=== PATIENT | female | born 1980 | race Caucasian/White ===

== ENCOUNTER 2018-12-27 18:31 | Inpatient (IN) | payer BC | END 2018-12-30 12:35 | disposition home or self-care (01) | LOC: ER 18:31 → ORTHO 4S 21:33 ==

== ENCOUNTER 2019-05-26 12:48 | Emergency (ER) | payer BC ==
[~2019-05-26] VITALS: Ht 157.5 cm; Wt 125.9 kg
[2019-05-26 12:56] VITALS: BP 180/103
[2019-05-26] MEDS ORDERED: METH-360 PO (14:13)
[2019-05-26] MEDS ORDERED: ketorolac tromethamine 15mg/ml inj. IM ONE (14:15)
== END 2019-05-26 14:43 | disposition home or self-care (01) ==
LOC: ER 12:49
DX: G56.02 Carpal tunnel syndrome, left upper limb (principal); I10 Essential (primary) hypertension; E11.9 Type 2 diabetes mellitus without complications; F41.9 Anxiety disorder, unspecified; Z90.49 Acquired absence of other specified parts of digestive tract; Z98.890 Other specified postprocedural states; Z56.0 Unemployment, unspecified; Z88.0 Allergy status to penicillin; Z91.018 Allergy to other foods; Z79.899 Other long term (current) drug therapy
CPT/HCPCS: 29125; 96372; 99283; J1885

== ENCOUNTER 2020-06-30 07:30 | Day surgery (SDC) | payer MEDICAID ==
[2020-06-22 12:07] LABS: BASOPHILS # (AUTO) 0.1 X10'3 (0-0.2); BASOPHILS % (AUTO) 0.8 % (0-1); EOSINOPHILS # (AUTO) 0.2 X10'3 (0-0.9); EOSINOPHILS % (AUTO) 2.1 % (0-6); LYMPHOCYTES # (AUTO) 1.8 X10'3 (1.1-4.8); LYMPHOCYTES % (AUTO) 21.7 % (21-51); MEAN CORPUSCULAR HEMOGLOBIN 26.9 PG (27.0-31.0); MEAN CORPUSCULAR HGB CONC 32.8 g/dL (33.0-36.5); MEAN CORPUSCULAR VOLUME 82.1 FL (78-98); MEAN PLATELET VOLUME 8.9 FL (7.4-10.4); MONOCYTES # (AUTO) 0.6 X10'3 (0-0.9); NEUTROPHILS # (AUTO) 5.7 X10'3 (1.8-7.7); NEUTROPHILS % (AUTO) 68.4 % (42-75); PRE OP HEMOGLOBIN 14.4 g/dL (12.0-16.0); PRE OP PLATELET COUNT 324 X10'3 (140-440); RED BLOOD COUNT 5.36 X10'6 (4.20-5.60); RED CELL DISTRIBUTION WIDTH 14.8 % (11.5-14.5)
[2020-06-22 12:13] LABS: ALBUMIN 3.9 G/DL (3.4-5.0); ALKALINE PHOSPHATASE 82 IU/L (46-116); BLOOD UREA NITROGEN 12 MG/DL (7-18); BUN/CREATININE RATIO 15.8 (6.6-38.0); CALCIUM 9.5 MG/DL (8.5-10.1); CHLORIDE 106 MMOL/L (99-107); CREATININE 0.76 MG/DL (0.40-0.90); PRE OP ALT 25 U/L (30-65); PRE OP ANION GAP 8 (8-16); PRE OP AST 12 U/L (10-37); PRE OP BILIRUB, TOTAL 0.3 MG/DL (0.0-1.0); PRE OP GLUCOSE 159 MG/DL (70-104); PRE OP POTASSIUM 3.9 MMOL/L (3.4-5.1); PRE OP SODIUM 141 MMOL/L (135-145); TOTAL PROTEIN 7.9 G/DL (6.4-8.2); eGFR 85 ML/MIN
[2020-06-22 12:44] LABS: HCG SERUM QL NEGATIVE
[~2020-06-30] VITALS: Ht 157.5 cm; Wt 127.3 kg
[2020-06-30] VITALS (8 sets, daily range): BP systolic 147–170; BP diastolic 83–102
[~2020-06-30 07:30] MED LIST: ALBU8HFA PO; BACDS PO; BIOT1CAP3 PO; BUPIVAcaine/PF 2.5mg/ml (0.25%) 10ml vial ONE; CALC500T63 PO; DULA0.75 SQ; IBUP-1986 PO; INSU100I8 SQ; LANTUS SQ; MULT-1085 PO; ZINC50TA67 PO; albuterol 2.5 MG/3 ML nebule NEB ONE; clindamycin-Cleocin 900mg/D5W 50 ML IV ONE; famotidine 20mg tablet PO ONE; ringers solution, lacted 1,000 ML IV SCH
[2020-06-30] MEDS ORDERED: LIDOcaine 0.5% (5mg/ml) 50ml vial ONE (10:07)
[2020-06-30] MEDS ORDERED: fentaNYL/PF 50MCG/1 ML 2ML syringe ONE ×2 (10:10→10:40)
[2020-06-30] MEDS ORDERED: MIDAZolam 5mg/5ml vial ONE (10:10)
[2020-06-30] MEDS ORDERED: BUPIVAcaine/PF 2.5mg/ml (0.25%) 10ml vial ONE (10:22)
[2020-06-30] MEDS ORDERED: labetalol 20mg/4ml (5mg/ml) syringe IV ONE (10:50)
--- NOTE | 2020-06-30 10:55 | NUR ---
Received from OR via , accompanied by Anesthesiologist DR NORTH and report given by Anesthesiolgist. PT IS AWAKE, ALERT, MOVING EXT X 4, NO C/O PAIN, SKIN WARM AND PINK, RIGHT DRESSING CD, VSS, PIV LEFT AC 20G PATENT.
--- NOTE | 2020-06-30 11:45 | NUR ---
PT MEETS DISCHARGE CRITERIA, NO C/O PAIN, SKIN WARM AND PINK, PIV REMOVED, DISCHARGE INSTRUCTIONS GIVEN TO PT AND SHE VERBALIZES UNDERSTANDING, VSS, BROUGHT TO DAUGHTER'S VEHICLE VIA W/C. ICE PACK SENT WITH PT.
== END 2020-06-30 11:45 | disposition home or self-care (01) ==
LOC: PAS 07:30
PROVIDERS: ATTEND Orthopaedic Surgery Hand Surgery
DX: G56.01 Carpal tunnel syndrome, right upper limb (principal); F17.210 Nicotine dependence, cigarettes, uncomplicated; G47.33 Obstructive sleep apnea (adult) (pediatric); F41.9 Anxiety disorder, unspecified; E11.9 Type 2 diabetes mellitus without complications; E66.9 Obesity, unspecified; Z68.43 Body mass index [BMI] 50.0-59.9, adult; Z20.828 Contact with and (suspected) exposure to other viral communicable diseases; Z90.49 Acquired absence of other specified parts of digestive tract; Z98.890 Other specified postprocedural states; Z87.19 Personal history of other diseases of the digestive system; Z86.14 Personal history of Methicillin resistant Staphylococcus aureus infection; Z88.0 Allergy status to penicillin; Z91.018 Allergy to other foods; Z79.4 Long term (current) use of insulin; Z79.899 Other long term (current) drug therapy; Z72.89 Other problems related to lifestyle
CPT/HCPCS: 29848; 36415; 80053; 82948; 84703; 85025; 87635; J2001; J2250; J3010; J3490; A4215; A6449; A7000; J7120

== ENCOUNTER 2020-07-24 05:35 | Day surgery (SDC) | payer MEDICAID ==
[2020-07-19 12:50] LABS: BASOPHILS % (AUTO) 0.5 % (0-1); EOSINOPHILS # (AUTO) 0.2 X10'3 (0-0.9); EOSINOPHILS % (AUTO) 1.9 % (0-6); LYMPHOCYTES # (AUTO) 1.7 X10'3 (1.1-4.8); LYMPHOCYTES % (AUTO) 20.4 % (21-51); MEAN CORPUSCULAR HGB CONC 33.2 g/dL (33.0-36.5); MEAN CORPUSCULAR VOLUME 81.2 FL (78-98); MEAN PLATELET VOLUME 9.3 FL (7.4-10.4); MONOCYTES # (AUTO) 0.6 X10'3 (0-0.9); MONOCYTES % (AUTO) 6.9 % (2-12); NEUTROPHILS # (AUTO) 5.7 X10'3 (1.8-7.7); NEUTROPHILS % (AUTO) 70.3 % (42-75); PRE OP HEMOGLOBIN 14.6 g/dL (12.0-16.0); PRE OP PLATELET COUNT 284 X10'3 (140-440); RED BLOOD COUNT 5.41 X10'6 (4.20-5.60); RED CELL DISTRIBUTION WIDTH 14.6 % (11.5-14.5)
[2020-07-19 13:13] LABS: ALBUMIN 3.8 G/DL (3.4-5.0); ALKALINE PHOSPHATASE 75 IU/L (46-116); BLOOD UREA NITROGEN 9 MG/DL (7-18); BUN/CREATININE RATIO 14.3 (6.6-38.0); CALCIUM 9.3 MG/DL (8.5-10.1); CHLORIDE 104 MMOL/L (99-107); CREATININE 0.63 MG/DL (0.40-0.90); PRE OP ALT 22 U/L (30-65); PRE OP ANION GAP 9 (8-16); PRE OP AST 12 U/L (10-37); PRE OP BILIRUB, TOTAL 0.3 MG/DL (0.0-1.0); PRE OP POTASSIUM 3.4 MMOL/L (3.4-5.1); PRE OP SODIUM 138 MMOL/L (135-145); TOTAL CARBON DIOXIDE 25.1 MMOL/L (24-32); TOTAL PROTEIN 7.7 G/DL (6.4-8.2); eGFR > 90 ML/MIN
[2020-07-19 13:17] LABS: HCG SERUM QL NEGATIVE
[2020-07-19 13:23] LABS: PRE OP GLUCOSE 207 MG/DL (70-104)
[~2020-07-24] VITALS: Ht 157.5 cm; Wt 126.0 kg
[~2020-07-24 05:35] MED LIST changes: -BIOT1CAP3 PO; -BUPIVAcaine/PF 2.5mg/ml (0.25%) 10ml vial ONE; -CALC500T63 PO; +DIAZ5TAB5 PO; -IBUP-1986 PO; +INSU100I31 SQ; -LANTUS SQ; -MULT-1085 PO; -ZINC50TA67 PO; -albuterol 2.5 MG/3 ML nebule NEB ONE; +ceFAZolin inj. 3,000 MG in normal saline 100ml IV soln 100 ML IV ONE; -clindamycin-Cleocin 900mg/D5W 50 ML IV ONE
[2020-07-24 05:50] VITALS: BP 146/84
[2020-07-24] MEDS ORDERED: LIDOcaine 1% (10mg/ml) 2ml vial ONE (06:15)
[2020-07-24] MEDS ORDERED: BUPIVAcaine/PF 2.5mg/ml (0.25%) 10ml vial ONE (06:40)
[2020-07-24] MEDS ORDERED: LIDOcaine 0.5% (5mg/ml) 50ml vial ONE (07:16)
[2020-07-24] MEDS ORDERED: fentaNYL/PF 50MCG/1 ML 2ML syringe ONE (07:18)
[2020-07-24] MEDS ORDERED: MIDAZolam 5mg/5ml vial ONE (07:18)
[2020-07-24] MEDS ORDERED: labetalol 20mg/4ml (5mg/ml) syringe IV PRN (07:20)
[2020-07-24] MEDS ORDERED: morphine 2 MG/ML inj. syringe IV PRN (07:20)
[2020-07-24] MEDS ORDERED: morphine 4 MG/ML inj SYRINge IV PRN (07:20)
[2020-07-24] MEDS ORDERED: hydrALAZINE 20mg/ml inj. IV PRN (07:20)
[2020-07-24] MEDS ORDERED: meperidine/PF 25mg/ml syringe IV PRN ×3 (07:20)
[2020-07-24] MEDS ORDERED: ringers solution, lacted 1,000 ML IV SCH (07:20)
[2020-07-24] MEDS ORDERED: proCHLORperazine 10 MG/2 ml inj IV PRN (07:20)
[2020-07-24] MEDS ORDERED: ondansetron/PF 4mg/2ml inj IV PRN (07:20)
[2020-07-24] MEDS ORDERED: acetaminophen 1,000mg/100ml IV 100 ML IV PRN (07:20)
[2020-07-24] MEDS ORDERED: propofol inj 20 ML IV ONE (07:44)
[2020-07-24] MEDS ORDERED: labetalol 20mg/4ml (5mg/ml) syringe IV ONE (07:44)
[2020-07-24 07:55] VITALS: BP 142/78
--- NOTE | 2020-07-24 07:55 | NUR ---
Received from OR via BED, accompanied by Anesthesiologist DR AJ and report given by Anesthesiolgist. PATIENT A&OX4, DENIES PAIN, V/S WNL, NEUROVASCULAR CHECKS INTACT, 20G PIV RUE, SCD ON, DRESSING TO LEFT WRIST CDI ELEVATED WITH ICEBAG APPLIED.
[2020-07-24 08:05] VITALS: BP 144/92
[2020-07-24 08:15] VITALS: BP 139/89
[2020-07-24 08:25] VITALS: BP 141/86
--- NOTE | 2020-07-24 08:26 | NUR ---
PATIENT A&OX4, DENIES PAIN, V/S WNL, NEUROVASCULAR CHECKS INTACT, 20G PIV RUE D/C, SCD OFF, DRESSING TO LEFT WRIST CDI ELEVATED WITH ICEBAG APPLIED. I HAVE REVIEWED D/C INSTRUCTIONS WITH PATIENT AND FAMILY AND THEY HAVE VERBALIZED UNDERSTANDING. PATIENT D/C HOME WITH ALL BELONGINGS AND FAMILY GAVE TRANSPORT HOME.
== END 2020-07-24 08:25 | disposition home or self-care (01) ==
LOC: PAS 05:35
PROVIDERS: ATTEND Orthopaedic Surgery Hand Surgery
DX: G56.02 Carpal tunnel syndrome, left upper limb (principal); Z20.828 Contact with and (suspected) exposure to other viral communicable diseases; F17.210 Nicotine dependence, cigarettes, uncomplicated; G47.33 Obstructive sleep apnea (adult) (pediatric); I10 Essential (primary) hypertension; E11.9 Type 2 diabetes mellitus without complications; F41.9 Anxiety disorder, unspecified; E66.9 Obesity, unspecified; Z68.43 Body mass index [BMI] 50.0-59.9, adult; Z86.14 Personal history of Methicillin resistant Staphylococcus aureus infection; Z87.19 Personal history of other diseases of the digestive system; Z79.899 Other long term (current) drug therapy; Z90.49 Acquired absence of other specified parts of digestive tract; Z98.890 Other specified postprocedural states; Z79.4 Long term (current) use of insulin; Z88.1 Allergy status to other antibiotic agents
CPT/HCPCS: 29848; 36415; 80053; 82948; 84703; 85025; 87635; J0690; J2001; J2250; J2704; J3010; J3490; A4215; A7000; J7120

== ENCOUNTER 2024-11-08 13:00 | Emergency (ER) | payer BC, MEDICAID, OTHER ==
[~2024-11-08] VITALS: Ht 157.5 cm; Wt 117.7 kg
[~2024-11-08 13:00] MED LIST changes: -BACDS PO; +SULF1TAB45 PO; -ceFAZolin inj. 3,000 MG in normal saline 100ml IV soln 100 ML IV ONE; -famotidine 20mg tablet PO ONE; -ringers solution, lacted 1,000 ML IV SCH
[2024-11-08 14:40] LABS: BASOPHILS % (AUTO) 0.4 % (0-1); EOSINOPHILS # (AUTO) 0.2 X10'3 (0-0.9); EOSINOPHILS % (AUTO) 2.1 % (0-6); HEMATOCRIT 38.8 % (35.0-45.0); HEMOGLOBIN 12.9 g/dl (12.0-16.0); LYMPHOCYTES # (AUTO) 1.4 X10'3 (1.1-4.8); LYMPHOCYTES % (AUTO) 16.6 % (21-51); MEAN CORPUSCULAR HEMOGLOBIN 27.5 PG (27.0-31.0); MEAN CORPUSCULAR HGB CONC 33.2 g/dL (33.0-36.5); MEAN CORPUSCULAR VOLUME 82.8 FL (78-98); MEAN PLATELET VOLUME 7.9 FL (7.4-10.4); MONOCYTES # (AUTO) 0.6 X10'3 (0-0.9); MONOCYTES % (AUTO) 7.1 % (2-12); NEUTROPHILS # (AUTO) 6.1 X10'3 (1.8-7.7); NEUTROPHILS % (AUTO) 73.8 % (42-75); PLATELET COUNT 419 X10'3 (140-440); RED BLOOD COUNT 4.69 X10'6 (4.20-5.60); RED CELL DISTRIBUTION WIDTH 14.4 % (11.5-14.5); WHITE BLOOD COUNT 8.2 X10'3 (4.5-11.0)
[2024-11-08 14:53] LABS: ALBUMIN 3.5 G/DL (3.4-5.0); ANION GAP 8 (8-16); BLOOD UREA NITROGEN 9 MG/DL (7-18); CALCIUM 9.2 MG/DL (8.5-10.1); CHLORIDE 103 MMOL/L (99-107); GLUCOSE 155 MG/DL (70-104); POTASSIUM 3.7 MMOL/L (3.5-5.1); SODIUM 139 MMOL/L (135-145); eCRCL 97 ML/MIN; eGFR > 90 ML/MIN
[2024-11-08 15:21] LABS: BILIRUBIN,URINE NEGATIVE (Neg); CLARITY,URINE SLIGHTLY CLOUDY (Clear); COLOR,URINE YELLOW (Yellow); GLUCOSE, URINE NEGATIVE (Neg); KETONES,URINE TRACE mg/dl (Neg); LEUKOCYTE ESTERASE ,URINE NEGATIVE (Neg); NITRITES, URINE NEGATIVE (Neg); OCCULT BLOOD,URINE SMALL (Neg); PH,URINE 5.5 (4.8-8.0); PROTEIN,URINE NEGATIVE (Neg)
[2024-11-08 15:27] LABS: UA COLLECTION TYPE CLN CATCH MIDSTREAM
[2024-11-08 15:28] LABS: BACTERIA,URINE 3+ /HPF (Neg); SQUAMOUS EPITHELIAL CELL,UR FEW /LPF (FEW); TRANSITIONAL EPI CELLS,URINE FEW /HPF
[2024-11-08] MEDS: methylnaltrexone br 12mg/0.6ml inj***SubQ only SQ ONE (15:35)
[2024-11-08] MEDS: magnesium citrate 296ml oral solution PO ONE (15:35)
[2024-11-08] MEDS: LIDOcaine 2% Viscous 15ml cup MM PRN (16:26)
[2024-11-08] MEDS ORDERED: LIDOcaine 2% Viscous 15ml cup MM PRN (17:00)
[2024-11-08 17:03] VITALS: TEMP 98.1
[2024-11-08] MEDS ORDERED: POLY17PO10 PO (17:06)
[2024-11-08 17:23] VITALS: BP 172/83; PULSE 97; RESP 18; O2SAT 98
== END 2024-11-08 17:25 | disposition home or self-care (01) ==
LOC: ER 13:01
DX: K56.41 Fecal impaction (principal); E11.9 Type 2 diabetes mellitus without complications; I10 Essential (primary) hypertension; F41.9 Anxiety disorder, unspecified; Z88.0 Allergy status to penicillin; Z90.49 Acquired absence of other specified parts of digestive tract; Z98.890 Other specified postprocedural states
CPT/HCPCS: 36415; 80048; 81001; 83605; 84145; 85025; 87040; 87088; 96372; 99283; J2212